=== PATIENT | female | born 1960 | race Caucasian/White ===

== ENCOUNTER 2017-09-21 10:48 | Emergency (ER) | payer OTHER ==
[~2017-09-21] VITALS: Ht 162.6 cm; Wt 86.6 kg
[2017-09-21 10:57] VITALS: Ht 162.6 cm; Wt 86.6 kg
[2017-09-21 12:37] VITALS: BP 148/72
== END 2017-09-21 12:37 | disposition home or self-care (01) ==
LOC: ED 10:48
DX: S63.501A Unspecified sprain of right wrist, initial encounter (principal); S63.602A Unspecified sprain of left thumb, initial encounter; S00.81XA Abrasion of other part of head, initial encounter; I10 Essential (primary) hypertension; E11.9 Type 2 diabetes mellitus without complications; Z88.5 Allergy status to narcotic agent; V49.9XXA Car occupant (driver) (passenger) injured in unspecified traffic accident, initial encounter; Y93.89 Activity, other specified; Y92.89 Other specified places as the place of occurrence of the external cause; Y99.8 Other external cause status
CPT/HCPCS: A4570; J1885; J3010; Q0162